=== PATIENT | female | born 2000 | race American Indian/Alaskan Native ===

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

== ENCOUNTER 2019-07-28 14:08 | Emergency (ER) | payer SELFPAY ==
--- NOTE | 2019-07-28 15:26 | Event Note ---
ED Screening Note Date of service: 07/28/19 Time: 15:23 ED Screening Note: Pt complains of RLQ pain x 3 weeks denies vomiting or diarrhea denies hematuria or dysuria +urinary frequency This initial assessment/diagnostic orders/clinical plan/treatment(s) is/are subject to change based on patients health status, clinical progression and re- assessment by fellow clinical providers in the ED. Further treatment and workup at subsequent clinical providers discretion. Patient/guardian urged not to elope from the ED as their condition may be serious if not clinically assessed and managed. Initial orders include: labs UA
[2019-07-28 16:09] LABS: Hematocrit 28.4 % (30.3-42.9); Hemoglobin 9.3 gm/dl (10.1-14.3); Mean Corpuscular HGB Conc 33 % (30-34); Platelet Count 426 K/mm3 (140-440); Red Blood Count 4.43 M/mm3 (3.65-5.03)
[2019-07-28 16:10] LABS: Mean Corpuscular Volume 64 fl (79-97); Red Cell Distribution Width 22.3 % (13.2-15.2)
[2019-07-28 16:34] LABS: Alanine Aminotransferase 6 units/L (7-56); Albumin 3.7 g/dL (3.9-5); BUN/Creatinine Ratio 13; Blood Urea Nitrogen 8 mg/dL (7-17); Calcium 9.1 mg/dL (8.4-10.2); Hemolysis Index 1
[2019-07-28 16:58] LABS: Basophils % (Manual) 0 % (0.0-1.8); Total Cells Counted 100
[2019-07-28 16:59] LABS: Anisocytosis 2+; Macrocytosis Few; Poikilocytosis 1+
[2019-07-28 17:00] LABS: Large Platelets 1+; Ovalocytes 1+; Platelet Estimate Consistent w Auto; Schistocytes Rare; Stomatocytes Few; Target Cells Few; Tear Drop Cells Few
[2019-07-28] MEDS ORDERED: KETOROLAC 60 MG/2 ML INJ IM ONE (17:17)
[2019-07-28 17:26] LABS: Bacteria,Urine 1+ /HPF (Negative); Bilirubin,Urine NEG (Negative); Blood,Urine NEG (Negative); Color,Urine Yellow (Yellow); Protein,Urine <15 mg/dL mg/dL (Negative); Urobilinogen,Urine < 2.0 mg/dL (<2.0)
[2019-07-28] MEDS ORDERED: NITROFURANTOIN MONOHYD/M-CRYST 100 MG CAP PO ONE (18:10)
--- NOTE | 2019-07-28 18:37 | Emergency Department Report ---
ED Abdominal Pain HPI - General Chief Complaint: Abdominal Pain Stated Complaint: ABD PAIN Time Seen by Provider: 07/28/19 15:23 Source: patient Mode of arrival: Ambulatory Limitations: No Limitations - History of Present Illness Initial Comments: 18-year-old female with a past medical history of sickle cell disease (this was not reported on past ER visits) presents to the hospital complaining of intermittent vaginal bleeding x3 weeks and suprapubic abdominal pain. Patient states that her suprapubic pain felt like cramps at the beginning of her me nstrual period. She has continued to have bleeding for the last 3 weeks and now has a sharp pain that is worse with palpation. Since last night she developed right upper quadrant pain that is also worse with palpation. Pain overall rated 8/10 in intensity. She denies nausea, vomiting, fever, or dysuria. Positive urinary frequency reported. She does not currently have a hematology. She denies previous abdominal surgeries. heart rate at time of my evaluation 89-90 beats per minute Severity scale (0 -10): 8 - Related Data Previous Rx's Medication Instructions Recorded Last Taken Type Ondansetron [Zofran Odt] 4 mg PO Q8HR PRN #20 tab.rapdis 12/16/17 Unknown Rx Benzonatate [Tessalon Perle] 100 mg PO TID PRN #30 capsule 05/12/18 Unknown Rx Cetirizine HCl [Zyrtec 10mg tab] 10 mg PO DAILY #30 tablet 05/12/18 Unknown Rx Fluticasone [Flonase] 1 spray NS QDAY #1 bottle 05/12/18 Unknown Rx Ferrous Sulfate [Iron 325 MG] 325 mg PO DAILY #30 tablet 07/28/19 Unknown Rx Ibuprofen [Motrin 600 MG tab] 600 mg PO Q8H PRN #30 tablet 07/28/[address]/M-Cryst 100 mg PO Q12HR #10 capsule 07/28/19 Unknown Rx [Macrobid CAP] medroxyPROGESTERone ACETATE 10 mg PO DAILY #7 tablet 07/28/19 Unknown Rx [Provera] traMADoL [Ultram 50 MG tab] 50 mg PO Q6HR PRN #10 tablet 07/28/19 Unknown Rx Allergies Allergy/AdvReac Type Severity Reaction Status Date / Time No Known Allergies Allergy Verified 12/16/17 06:32 ED Review of Systems ROS: Stated complaint: ABD PAIN Other details as noted in HPI Comment: All other systems reviewed and negative ED Past Medical Hx - Past Medical History Previous Medical History?: Yes Hx Sickle Cell Disease: Yes - Surgical History Past Surgical History?: Yes Additional Surgical History: [place] teeth removal - Social History Smoking Status: Never Smoker Substance Use Type: Alcohol - Medications Home Medications: Home Medications Medication Instructions Recorded Confirmed Last Taken Type Ondansetron [Zofran Odt] 4 mg PO Q8HR PRN #20 tab.rapdis 12/16/17 Unknown Rx Benzonatate [Tessalon Perle] 100 mg PO TID PRN #30 capsule 05/12/18 Unknown Rx Cetirizine HCl [Zyrtec 10mg tab] 10 mg PO DAILY #30 tablet 05/12/18 Unknown Rx Fluticasone [Flonase] 1 spray NS QDAY #1 bottle 05/12/18 Unknown Rx Ferrous Sulfate [Iron 325 MG] 325 mg PO DAILY #30 tablet 07/28/19 Unknown Rx Ibuprofen [Motrin 600 MG tab] 600 mg PO Q8H PRN #30 tablet 07/28/[address]/M-Cryst 100 mg PO Q12HR #10 capsule 07/28/19 Unknown Rx [Macrobid CAP] medroxyPROGESTERone ACETATE 10 mg PO DAILY #7 tablet 07/28/19 Unknown Rx [Provera] traMADoL [Ultram 50 MG tab] 50 mg PO Q6HR PRN #10 tablet 07/28/19 Unknown Rx ED Physical Exam - General Limitations: No Limitations - Other Other exam information: General: No acute distress Head: Atraumatic Eyes: normal appearance ENT: Moist mucous membranes Neck: Normal appearance, no midline tenderness Chest: Clear to auscultation bilaterally CV: Regular rate and rhythm Abdomen: Soft, normal bowel sounds, right upper quadrant tenderness suprapubic tenderness, nondistended, no rebound or guarding Back: Normal inspection Extremity: Normal inspection, full range of motion Neuro: Alert O x 3, no facial asymmetry, speech clear, no gross motor sensory deficit Psych: Appropriate behavior Skin: No rash ED Course Vital Signs 07/28/19 07/28/19 07/28/19 14:12 14:17 15:16 Temperature 98.4 F 98.7 F 98.4 F Pulse Rate 114 H 100 H 110 H Respiratory 16 18 16 Rate Blood Pressure 119/73 165/117 119/73 O2 Sat by Pulse 100 97 100 Oximetry 07/28/19 07/28/19 17:30 18:00 Temperature Pulse Rate Respiratory 16 18 Rate Blood Pressure O2 Sat by Pulse Oximetry ED Medical Decision Making - Lab Data Result diagrams: 07/28/19 15:50 07/28/19 15:50 Lab Results 07/28/19 07/28/19 07/28/19 Range/Units 15:50 15:50 15:50 WBC 11.8 H (4.5-11.0) K/mm3 RBC 4.43 (3.65-5.03) M/mm3 Hgb 9.3 L (10.1-14.3) gm/dl Hct 28.4 L (30.3-42.9) % MCV 64 L (79-97) fl MCH 21 L (28-32) pg MCHC 33 (30-34) % RDW 22.3 H (13.2-15.2) % Plt Count 426 (140-440) K/mm3 Lymph # Head Irrigator Add Manual Diff Complete Total Counted 100 Seg Neuts % (Manual) 66.0 (40.0-70.0) % Band Neutrophils % 0 % Lymphocytes % (Manual) 27.0 (13.4-35.0) % Reactive Lymphs % (Man) 0 % Monocytes % (Manual) 5.0 (0.0-7.3) % Eosinophils % (Manual) 2.0 (0.0-4.3) % Basophils % (Manual) 0 (0.0-1.8) % Metamyelocytes % 0 % Myelocytes % 0 % Promyelocytes % 0 % Blast Cells % 0 % Nucleated RBC % Not Reportable Seg Neutrophils # Man 7.8 H (1.8-7.7) K/mm3 Band Neutrophils # 0.0 K/mm3 Lymphocytes # (Manual) 3.2 (1.2-5.4) K/mm3 Abs React Lymphs (Man) 0.0 K/mm3 Monocytes # (Manual) 0.6 (0.0-0.8) K/mm3 Eosinophils # (Manual) 0.2 (0.0-0.4) K/mm3 Basophils # (Manual) 0.0 (0.0-0.1) K/mm3 Metamyelocytes # 0.0 K/mm3 Myelocytes # 0.0 K/mm3 Promyelocytes # 0.0 K/mm3 Blast Cells # 0.0 K/mm3 WBC Morphology Not Reportable Hypersegmented Neuts Not Reportable Hyposegmented Neuts Not Reportable Hypogranular Neuts Not Reportable Smudge Cells Not Reportable Toxic Granulation Not Reportable Toxic Vacuolation Not Reportable Dohle Bodies Not Reportable Pelger-Huet Anomaly Not Reportable Jael Rods Not Reportable Platelet Estimate Consistent w auto Clumped Platelets Not Reportable Plt Clumps, EDTA Not Reportable Large Platelets 1+ Giant Platelets Not Reportable Platelet Satelliting Not Reportable Plt Morphology Comment Not Reportable RBC Morphology Not Reportable Dimorphic RBCs Not Reportable Polychromasia Few Hypochromasia Not Reportable Poikilocytosis 1+ Anisocytosis 2+ Microcytosis 1+ Macrocytosis Few Spherocytes Not Reportable Pappenheimer Bodies Not Reportable Sickle Cells Not Reportable Target Cells Few Tear Drop Cells Few Ovalocytes 1+ Stomatocytes Few Helmet Cells Not Reportable Breen-[place] Bodies Not Reportable Lyman Rings Not Reportable [place] Cells Not Reportable Bite Cells Not Reportable Crenated Cell Not Reportable Elliptocytes Few Acanthocytes (Spur) Not Reportable Rouleaux Not Reportable Hemoglobin C Crystals Not Reportable Schistocytes Rare Malaria parasites Not Reportable Georges Bodies Not Reportable Hem Pathologist Commnt No Sodium 136 L (137-145) mmol/L Potassium 3.6 (3.6-5.0) mmol/L Chloride 100.7 (98-107) mmol/L Carbon Dioxide 22 (22-30) mmol/L Anion Gap 17 mmol/L BUN 8 (7-17) mg/dL Creatinine 0.6 L (0.7-1.2) mg/dL Estimated GFR > 60 ml/min BUN/Creatinine Ratio 13 % Glucose 94 (65-100) mg/dL Calcium 9.1 (8.4-10.2) mg/dL Total Bilirubin 0.30 (0.1-1.2) mg/dL AST 13 (5-40) units/L ALT 6 L (7-56) units/L Alkaline Phosphatase 68 (35-129) units/L Total Protein 7.6 (6.3-8.2) g/dL Albumin 3.7 L (3.9-5) g/dL Albumin/Globulin Ratio 0.9 % Lipase 27 (13-60) units/L HCG, Qual Negative (Negative) Urine Color (Yellow) Urine Turbidity (Clear) Urine pH (5.0-7.0) Ur Specific [place] (1.003-1.030) Urine Protein (Negative) mg/dL Urine Glucose (UA) (Negative) mg/dL Urine Ketones (Negative) mg/dL Urine Blood (Negative) Urine Nitrite (Negative) Urine Bilirubin (Negative) Urine Urobilinogen (<2.0) mg/dL Ur Leukocyte Esterase (Negative) Urine WBC (Auto) (0.0-6.0) /HPF Urine RBC (Auto) (0.0-6.0) /HPF U Epithel Cells (Auto) (0-13.0) /HPF Urine Bacteria (Auto) (Negative) /HPF 07/28/19 Range/Units 16:55 WBC (4.5-11.0) K/mm3 RBC (3.65-5.03) M/mm3 Hgb (10.1-14.3) gm/dl Hct (30.3-42.9) % MCV (79-97) fl MCH (28-32) pg MCHC (30-34) % RDW (13.2-15.2) % Plt Count (140-440) K/mm3 Lymph # Add Manual Diff Total Counted Seg Neuts % (Manual) (40.0-70.0) % Band Neutrophils % % Lymphocytes % (Manual) (13.4-35.0) % Reactive Lymphs % (Man) % Monocytes % (Manual) (0.0-7.3) % Eosinophils % (Manual) (0.0-4.3) % Basophils % (Manual) (0.0-1.8) % Metamyelocytes % % Myelocytes % % Promyelocytes % % Blast Cells % % Nucleated RBC % Seg Neutrophils # Man (1.8-7.7) K/mm3 Band Neutrophils # K/mm3 Lymphocytes # (Manual) (1.2-5.4) K/mm3 Abs React Lymphs (Man) K/mm3 Monocytes # (Manual) (0.0-0.8) K/mm3 Eosinophils # (Manual) (0.0-0.4) K/mm3 Basophils # (Manual) (0.0-0.1) K/mm3 Metamyelocytes # K/mm3 Myelocytes # K/mm3 Promyelocytes # K/mm3 Blast Cells # K/mm3 WBC Morphology Hypersegmented Neuts Hyposegmented Neuts Hypogranular Neuts Smudge Cells Toxic Granulation Toxic Vacuolation Dohle Bodies Pelger-Huet Anomaly Jael Rods Platelet Estimate Clumped Platelets Plt Clumps, EDTA Large Platelets Giant Platelets Platelet Satelliting Plt Morphology Comment RBC Morphology Dimorphic RBCs Polychromasia Hypochromasia Poikilocytosis Anisocytosis Microcytosis Macrocytosis Spherocytes Pappenheimer Bodies Sickle Cells Target Cells Tear Drop Cells Ovalocytes Stomatocytes Helmet Cells Breen-[place] Bodies Lyman Rings [place] Cells Bite Cells Crenated Cell Elliptocytes Acanthocytes (Spur) Rouleaux Hemoglobin C Crystals Schistocytes Malaria parasites Georges Bodies Hem Pathologist Commnt Sodium (137-145) mmol/L Potassium (3.6-5.0) mmol/L Chloride (98-107) mmol/L Carbon Dioxide (22-30) mmol/L Anion Gap mmol/L BUN (7-17) mg/dL Creatinine (0.7-1.2) mg/dL Estimated GFR ml/min BUN/Creatinine Ratio % Glucose (65-100) mg/dL Calcium (8.4-10.2) mg/dL Total Bilirubin (0.1-1.2) mg/dL AST (5-40) units/L ALT (7-56) units/L Alkaline Phosphatase (35-129) units/L Total Protein (6.3-8.2) g/dL Albumin (3.9-5) g/dL Albumin/Globulin Ratio % Lipase (13-60) units/L HCG, Qual (Negative) Urine Color Yellow (Yellow) Urine Turbidity Clear (Clear) Urine pH 6.0 (5.0-7.0) Ur Specific [place] 1.013 (1.003-1.030) Urine Protein <15 mg/dl (Negative) mg/dL Urine Glucose (UA) Neg (Negative) mg/dL Urine Ketones Neg (Negative) mg/dL Urine Blood Neg (Negative) Urine Nitrite Neg (Negative) Urine Bilirubin Neg (Negative) Urine Urobilinogen < 2.0 (<2.0) mg/dL Ur Leukocyte Esterase Sm (Negative) Urine WBC (Auto) 10.0 H (0.0-6.0) /HPF Urine RBC (Auto) 2.0 (0.0-6.0) /HPF U Epithel Cells (Auto) 3.0 (0-13.0) /HPF Urine Bacteria (Auto) 1+ (Negative) /HPF - Radiology Data Radiology results: report reviewed Pelvic and transvaginal ultrasound with Doppler INDICATION: Vaginal bleeding for the past 3 weeks FINDINGS: The uterus measures 10 x 5 x 4 cm with endometrial thickness of 9 mm. There is a cystic lesion measuring 2.6 cm arising from the ri ght ovary. The left ovary is unremarkable. No significant free pelvic fluid is identified IMPRESSION: Focal 2.6 cm mildly complex right ovarian cyst, as outlined above. The left ovary appears normal. No evidence of ovarian torsion is identified. ULTRASOUND ABDOMEN, COMPLETE INDICATION: Right upper quadrant abdominal pain COMPARISON: No relevant prior imaging study available. FINDINGS: Pancreas: No significant abnormality. Abdominal Aorta: No significant abnormality. IVC: No significant abnormality. Liver: No significant abnormality. Normal hepatopedal blood flow in the main portal vein. Gallbladder: No significant abnormality. Bile ducts: No significant abnormality. Common bile duct measures 3 mm. Kidneys: Right: No significant abnormality. Left: No significant abnormality. Spleen: No significant abnormality. Free fluid: None. Additional Findings: None. IMPRESSION: 1. No sonographic abnormality of the abdomen. - Medical Decision Making 1 point drop in hemoglobin compared to values from November 2017. Tachycardia resolved spontaneously no signs of hypotension. Pelvic/transvaginal ultrasound positive for right ovarian cyst. Urine concerning for possible UTI and abdominal ultrasound unremarkable for acute findings. Patient received Toradol and Macrobid in the ED. She be states she has been placed on iron tablets in the past but is not currently taking any. She will be discharged on pain medication, antibiotics, and iron tablets for microcytic anemia and vaginal bleeding. Several days of Provera will be provided for vaginal bleeding in [employer] follow-up will be encouraged. - Differential Diagnosis , DUB, anemia, UTI, gallstones Critical Care Time: No Critical care attestation.: If time is entered above; I have spent that time in minutes in the direct care of this critically ill patient, excluding procedure time. ED Disposition Clinical Impression: Menometrorrhagia, UTI (urinary tract infection), Right ovarian cyst, Microcytic anemia, Sickle cell anemia Disposition: DC- TO HOME OR SELFCARE Is pt being admited?: No Does the pt Need Aspirin: No Condition: Stable Instructions: Dysfunctional Uterine Bleeding (ED), Anemia (ED), Ovarian Cyst (ED), Urinary Tract Infection in Women (ED) Additional Instructions: Take the medication as prescribed. Follow-up with your doctor or doctor/clinic provided. Return if symptoms worsen as indicated by your discharge instructions. Prescriptions: Ferrous Sulfate [Iron 325 MG] 325 mg PO DAILY #[address]/M-Cryst [Macrobid CAP] 100 mg PO Q12HR #10 capsule Ibuprofen [Motrin 600 MG tab] 600 mg PO Q8H PRN #30 tablet PRN Reason: Pain medroxyPROGESTERone ACETATE [Provera] 10 mg PO DAILY #7 tablet traMADoL [Ultram 50 MG tab] 50 mg PO Q6HR PRN #10 tablet PRN Reason: Pain Referrals: PRIMARY CARE, [Primary Care Provider] - 3-5 Days OPAL SMITH MD [Staff Physician] - 3-5 Days ([facility] doctor ) Time of Disposition: 20:11
--- NOTE | 2019-07-28 19:34 | Ultrasound Report ---
ULTRASOUND ABDOMEN, COMPLETE INDICATION: Right upper quadrant abdominal pain COMPARISON: No relevant prior imaging study available. FINDINGS: Pancreas: No significant abnormality. Abdominal Aorta: No significant abnormality. IVC: No significant abnormality. Liver: No significant abnormality. Normal hepatopedal blood flow in the main portal vein. Gallbladder: No significant abnormality. Bile ducts: No significant abnormality. Common bile duct measures 3 mm. Kidneys: Right: No significant abnormality. Left: No significant abnormality. Spleen: No significant abnormality. Free fluid: None. Additional Findings: None. IMPRESSION: 1. No sonographic abnormality of the abdomen. Signer Name: Parth Del Cid MD Signed: 07/28/2019 7:30 PM Workstation Name: [id number]
--- NOTE | 2019-07-28 19:42 | Ultrasound Report ---
Pelvic and transvaginal ultrasound with Doppler INDICATION: Vaginal bleeding for the past 3 weeks FINDINGS: The uterus measures 10 x 5 x 4 cm with endometrial thickness of 9 mm. There is a cystic les ion measuring 2.6 cm arising from the right ovary. The left ovary is unremarkable. No significant avel e pelvic fluid is identified IMPRESSION: Focal 2.6 cm mildly complex right ovarian cyst, as outlined above. The left ovary appears normal. No evidence of ovarian torsion is identified. Signer Name: Parth Del Cid MD Signed: 07/28/2019 7:38 PM Workstation Name: [id number]
[2019-07-28 19:55] VITALS: BP 103/69
== END 2019-07-28 20:49 | disposition home or self-care (01) ==
LOC: ED 14:08
DX: D57.1 Sickle-cell disease without crisis (principal); D64.9 Anemia, unspecified; N83.201 Unspecified ovarian cyst, right side; N39.0 Urinary tract infection, site not specified; N92.1 Excessive and frequent menstruation with irregular cycle; Z79.899 Other long term (current) drug therapy; Z98.890 Other specified postprocedural states
CPT/HCPCS: 36415; 76705; 76830; 76856; 80053; 81001; 83690; 84703; 85007; 85025; 87086; 96372; 99284; J1885